=== PATIENT | male | born 1970 | race Caucasian/White ===

== ENCOUNTER 2017-01-03 14:10 | Emergency (ER) | payer OTHER ==
[2017-01-03 15:18] VITALS: BP 135/95
[2017-01-03] MEDS ORDERED: Dexamethasone IV* 4 MG/ML 1 ML (4 MG) IM ONE (15:28)
--- NOTE | 2017-01-03 15:41 | UC ---
Throat Pain/Nasal Yariel HPI - HPI Summary HPI Summary: PATIENT PRESENTS TO WITH CC OF ENLARGED UVULA SINCE THIS MORNING. HE STATES HE DRANK ALCOHOL LAST NIGHT, BUT DENIES ANY NEW FOODS, MEDICATIONS OR DRINKS WHICH WOULD HAVE CAUSED AN ALLERGY. HE DENIES FRANCOIS, THROAT PAIN OR NECK PAIN. DENIES DIFFICULTY SWALLOWING, BUT NOTES TO FEELING OF A FB IN THE THROAT WHILE SWALLOWING. UVULA HAS ELONGATED, BUT HAS NOT GOTTEN THICKER. HE DENIES OTHER SYMPTOMS AND IS OTHERWISE HEALTHY. - History of Current Complaint Chief Complaint: UCRespiratory Stated Complaint: BACK OF THROAT SWELLING (ALLERGIC REACTION?) Time Seen by Provider: 01/03/17 15:19 Hx Obtained From: Patient Onset/Duration: Sudden Onset Severity: Moderate Pain Intensity: 1 Pain Scale Used: 0-10 Numeric Associated Signs & Symptoms: Positive: Dysphagia - Epiglottits Risk Factors Epiglottis Risk Factors: Negative - Allergies/Home Medications Allergies/Adverse Reactions: Allergies Allergy/AdvReac Type Severity Reaction Status Date / Time Penicillins Allergy Hives Verified 01/03/17 15:09 SEASONAL ALLERGIES Allergy Unknown Uncoded 01/03/17 15:09 Reaction Details Home Medications: Home Medications Ibuprofen TAB* [Advil TAB*] 800 mg PO Q6H PRN 01/03/17 [History Confirmed ] Losartan TAB* [Cozaar TAB*] 25 mg PO DAILY 01/03/17 [History Confirmed 01/03/17] Methimazole TAB* [Tapazole TAB*] 10 mg PO DAILY 01/03/17 [History Confirmed ] diPHENhydraMINE PO* [Benadryl PO 25 MG TAB*] 25 mg PO Q6H PRN 01/03/17 [History Confirmed 01/03/17] PMH/Surg Hx/FS Hx/Imm Hx Previously Healthy: Yes Endocrine History Of: Reports: Thyroid Disease - Surgical History Surgical History: Yes Surgery Procedure, Year, and Place: TONSILLECTOMY - Family History Known Family History: Positive: Unknown - Social History Occupation: Employed Full-time Lives: With Family Alcohol Use: Weekly Substance Use Type: None Smoking Status (MU): Former Smoker Type: Cigarettes When Did the Patient Quit Smoking/Using Tobacco: 30 YEARS AGO Review of Systems Constitutional: Negative Skin: Negative Eyes: Negative ENT: Sore Throat, Other - ENLARGED UVULA Respiratory: Negative Cardiovascular: Negative Musculoskeletal: Negative Neurological: Negative Psychological: Negative All Other Systems Reviewed And Are Negative: Yes Physical Exam Triage Information Reviewed: Yes Appearance: Well-Appearing, No Pain Distress, Well-Nourished Vital Signs: Initial Vital Signs Temp 97.9 F 01/03/17 15:12 Pulse 75 01/03/17 15:12 Resp 18 01/03/17 15:12 BP 135/95 01/03/17 15:12 Pulse Ox 98 01/03/17 15:12 Vital Signs Reviewed: Yes Eye Exam: Normal Eyes: Positive: Conjunctiva Clear ENT Exam: Normal ENT: Positive: Other: - ELONGATED UVULA, WITHOUT WIDENED UVULA Neck exam: Normal Neck: Positive: Supple, Nontender, No Lymphadenopathy Respiratory Exam: Normal Respiratory: Positive: Chest non-tender, Lungs clear Cardiovascular Exam: Normal Neurological Exam: Normal Neurological: Positive: Muscle Tone Normal Psychological: Positive: Normal Response To Family, Age Appropriate Behavior Skin Exam: Normal Throat Pain/Nasal Course/Dx - Course Course Of Treatment: PATIENT GIVEN DECADRON FOR UVULITIS SINCE LAST NIGHT. PATIENT WILL FOLLOW UP WITH [facility] IF NEEDED. LIKELY UVULA ENLARGED D/T DRINKING HEAVILY LAST NIGHT AND SLEEPING WITH MOUTH OPEN, INFLAMING THE UVULA. DENIES DIFFICULTY BREATHING. - Differential Dx/Diagnosis Differential Diagnosis/HQI/PQRI: Laryngitis, Pharyngitis, URI, Other Provider Diagnoses: UVULITIS Discharge - Discharge Plan Condition: Stable Disposition: HOME Patient Education Materials: Uvulitis (ED) Referrals: Dylan Maciel MD [Medical Doctor] - Additional Instructions: FOLLOW UP WITH [facility] IF SYMPTOMS PERSIST.
== END 2017-01-03 16:00 | disposition home or self-care (01) ==
LOC: UCCORT 14:10
DX: K12.2 Cellulitis and abscess of mouth (principal); E07.9 Disorder of thyroid, unspecified; Z88.0 Allergy status to penicillin; Z87.891 Personal history of nicotine dependence
CPT/HCPCS: 96372; 99211; G0463; J1100